=== PATIENT | female | born 1985 | race African-American/Black ===

== ENCOUNTER 2020-01-02 13:31 | Emergency (ER) | payer BC ==
[~2020-01-02] VITALS: Ht 154.9 cm; Wt 105.2 kg
--- NOTE | 2020-01-02 13:39 | NUR ---
PT BIB FRIEND C/O NAUSEA, HEADACHE, PT IS AAOX4, NOT IN RESPIRATORY DISTRESS, HOOKED TO MONITOR, KEPT RESTED AND COMFORTABLE, WILL CONTINUE TO MONITOR.
--- NOTE | 2020-01-02 13:50 | NUR ---
SEEN AND EXAMINED BY
[2020-01-02] MEDS ORDERED: METOCLOPRAMIDE HCL 10 MG/2 ML VIAL ONE (13:55)
[2020-01-02] MEDS ORDERED: KETOROLAC TROMETHAMINE INJ 30 MG/ML VIAL ONE (13:55)
[2020-01-02] MEDS ORDERED: diphenhydrAMINE HCL 50 MG/ML VIAL ONE (13:55)
[2020-01-02] MEDS ORDERED: IV NS 0.9% 250 ML BAG IV ONE (14:00)
[2020-01-02] MEDS ORDERED: METOCLOPRAMIDE HCL 10 MG/2 ML VIAL IV ONE (14:00)
[2020-01-02] MEDS ORDERED: KETOROLAC TROMETHAMINE INJ 30 MG/ML VIAL IV ONE (14:00)
[2020-01-02] MEDS ORDERED: diphenhydrAMINE HCL 50 MG/ML VIAL IV ONE (14:00)
--- NOTE | 2020-01-02 14:10 | NUR ---
IV LINE ESTABLISHED, L AC G20
[2020-01-02 15:22] VITALS: BP 118/72
--- NOTE | 2020-01-02 15:22 | NUR ---
IV removed. Catheter intact and site benign. Pressure and 4x4 applied to site. No bleeding noted. Patient discharged to home in stable condition. Written and verbal after care instructions given. Patient verbalizes understanding of instruction.
== END 2020-01-02 15:23 | disposition home or self-care (01) ==
LOC: ER 13:31
DX: G43.909 Migraine, unspecified, not intractable, without status migrainosus (principal); N94.6 Dysmenorrhea, unspecified; F41.9 Anxiety disorder, unspecified
CPT/HCPCS: 96374; 96375; 99283; A4216; J1200; J1885; J2765; J7050